=== PATIENT | female | born 1940 | race Caucasian/White ===

== ENCOUNTER 2022-03-07 13:49 | Emergency (ER) | payer BC, MEDICARE, OTHER ==
[2022-03-07] MEDS ORDERED: Acetaminophen 500 MG Tab PO ONE (16:28)
== END 2022-03-07 16:54 | disposition home or self-care (01) ==
LOC: LL.ED 13:49
DX: S00.81XA Abrasion of other part of head, initial encounter (principal); M25.562 Pain in left knee; M25.561 Pain in right knee; I10 Essential (primary) hypertension; E11.9 Type 2 diabetes mellitus without complications; E66.9 Obesity, unspecified; Z68.39 Body mass index [BMI] 39.0-39.9, adult; W01.0XXA Fall on same level from slipping, tripping and stumbling without subsequent striking against object, initial encounter
CPT/HCPCS: 70486; 99283; 99284; A9270-GY

== ENCOUNTER 2024-02-29 12:55 | Emergency (ER) | payer MEDICARE ==
[2024-02-29] MEDS ORDERED: Sodium Chloride 0.9% 10 ML Syringe FLUSH PRN (13:15)
[2024-02-29 13:39] LABS: BASOPHILS ABSOLUTE AUTO 0.07 K/uL (0.00-0.20); BASOPHILS PERCENT AUTO 0.7 % (0.0-2.0); EOSINOPHILS ABSOLUTE AUTO 0.06 K/uL (0.00-0.50); EOSINOPHILS PERCENT AUTO 0.6 % (0.0-5.0); HEMATOCRIT 28.5 % (34.0-46.0); HEMOGLOBIN 9.5 g/dL (11.7-15.5); LYMPHOCYTES ABSOLUTE AUTO 1.12 K/uL (0.50-3.50); LYMPHOCYTES PERCENT AUTO 11.8 % (10.0-50.0); MEAN CORPUSCULAR HEMOGLOBIN 32.5 pg (28.2-33.3); MEAN CORPUSCULAR HGB CONC 33.3 g/dL (31.7-36.0); MEAN CORPUSCULAR VOLUME 97.6 fL (84.0-98.0); MONOCYTES ABSOLUTE AUTO 0.68 K/uL (0.00-1.00); MONOCYTES PERCENT AUTO 7.2 % (2.0-14.0); NEUTROPHILS ABSOLUTE AUTO 7.54 K/uL (1.40-7.00); NEUTROPHILS PERCENT AUTO 79.7 % (45.0-80.0); PLATELET COUNT,PLT 98 K/uL (150-350); RED BLOOD CELL COUNT 2.92 M/uL (3.77-5.09); RED CELL DISTRIBUTION WIDTH 17.7 % (11.2-14.1); WHITE BLOOD CELL COUNT,WBC 9.5 K/uL (4.0-10.2)
[2024-02-29] MEDS: Morphine 4 MG/ML Syringe IVPUSH ONE (13:50)
[2024-02-29] MEDS: Sodium Chloride 0.9% 1,000 ML IV ONE (13:50)
[2024-02-29] MEDS: Ondansetron 4 MG Tab.DIS PO ONE (13:50)
[2024-02-29] MEDS: Ondansetron 4 MG/2 ML SDV IVPUSH ONE (13:51)
[2024-02-29] MEDS: Morphine 4 MG/ML Syringe IM ONE (13:57)
[2024-02-29 14:00] LABS: ALANINE AMINOTRANSFERASE,ALT 20 U/L (12-78); ALBUMIN 3.1 g/dL (3.4-5.0); ALKALINE PHOSPHATASE 114 IU/L (46-116); ANION GAP 12.6 meq/L (7-15); ASPARTATE AMNIOTRANSFERASE,AST 31 U/L (15-37); BILIRUBIN TOTAL 1.8 mg/dL (0.2-1.0); BLOOD UREA NITROGEN,BUN 49 mg/dL (7-18); CALCIUM 7.8 mg/dL (8.5-10.1); CARBON DIOXIDE,CO2 22.4 mmol/L (21.0-32.0); CHLORIDE,CL 106 mmol/L (98-107); CREATININE 2.32 mg/dL (0.51-1.17); GLUCOSE RANDOM 69 mg/dL (70-99); POTASSIUM,K 3.9 mmol/L (3.5-5.1); SODIUM,NA 141 mmol/L (136-145)
[2024-02-29 14:01] LABS: ESTIMATED GFR 20 mL/min (>=60)
[2024-02-29] MEDS: oxyCODONE 5 MG Tab PO ONE (15:34)
[2024-02-29] MEDS: Morphine 10 MG/ML Syringe IM ONE (16:26)
== END 2024-02-29 17:35 ==
LOC: LL.ED 12:55
DX: S42.201A Unspecified fracture of upper end of right humerus, initial encounter for closed fracture (principal); I13.0 Hypertensive heart and chronic kidney disease with heart failure and stage 1 through stage 4 chronic kidney disease, or unspecified chronic kidney disease; I50.30 Unspecified diastolic (congestive) heart failure; N18.4 Chronic kidney disease, stage 4 (severe); E11.22 Type 2 diabetes mellitus with diabetic chronic kidney disease; E66.9 Obesity, unspecified; E78.00 Pure hypercholesterolemia, unspecified; Z79.82 Long term (current) use of aspirin; Z79.899 Other long term (current) drug therapy; Z79.4 Long term (current) use of insulin; Z79.84 Long term (current) use of oral hypoglycemic drugs; W19.XXXA Unspecified fall, initial encounter
CPT/HCPCS: 36415; 73060; 73200; 73560; 80053; 82947; 85025; 96372; 99284; A9270; J2270

== ENCOUNTER 2024-03-05 19:50 | Emergency (ER) | payer MEDICARE ==
[2024-03-05] MEDS ORDERED: Sodium Chloride 0.9% 10 ML Syringe FLUSH PRN ×2 (20:05)
[2024-03-05] MEDS: Lactated Ringers 1,000 ML IV ONE ×2 (20:22→21:24)
[2024-03-05 20:23] LABS: BASOPHILS ABSOLUTE AUTO 0.01 K/uL (0.00-0.20); BASOPHILS PERCENT AUTO 0.1 % (0.0-2.0); EOSINOPHILS ABSOLUTE AUTO 0.11 K/uL (0.00-0.50); EOSINOPHILS PERCENT AUTO 1.1 % (0.0-5.0); HEMATOCRIT 25.1 % (34.0-46.0); HEMOGLOBIN 8.3 g/dL (11.7-15.5); LYMPHOCYTES ABSOLUTE AUTO 1.06 K/uL (0.50-3.50); LYMPHOCYTES PERCENT AUTO 10.5 % (10.0-50.0); MEAN CORPUSCULAR HEMOGLOBIN 33.6 pg (28.2-33.3); MEAN CORPUSCULAR HGB CONC 33.1 g/dL (31.7-36.0); MEAN CORPUSCULAR VOLUME 101.6 fL (84.0-98.0); MONOCYTES ABSOLUTE AUTO 1.11 K/uL (0.00-1.00); NEUTROPHILS ABSOLUTE AUTO 7.79 K/uL (1.40-7.00); NEUTROPHILS PERCENT AUTO 77.3 % (45.0-80.0); PLATELET COUNT,PLT 167 K/uL (150-350); RED BLOOD CELL COUNT 2.47 M/uL (3.77-5.09); WHITE BLOOD CELL COUNT,WBC 10.1 K/uL (4.0-10.2)
[2024-03-05] MEDS ORDERED: Norepinephrine Bit/D5W Premix 250 ML ONE (20:28)
[2024-03-05] MEDS: Norepinephrine Bit/D5W Premix 250 ML IV SCH (20:35)
[2024-03-05] MEDS: Cefepime 2 GM Vial IVPUSH ONE (20:45)
[2024-03-05 20:47] LABS: LACTIC ACID 1.7 mmol/L (0.4-2.0)
[2024-03-05 20:51] LABS: ALANINE AMINOTRANSFERASE,ALT 20 U/L (12-78); ALKALINE PHOSPHATASE 135 IU/L (46-116); ANION GAP 20.4 meq/L (7-15); ASPARTATE AMNIOTRANSFERASE,AST 30 U/L (15-37); BLOOD UREA NITROGEN,BUN 139 mg/dL (7-18); CALCIUM 7.9 mg/dL (8.5-10.1); CARBON DIOXIDE,CO2 16.3 mmol/L (21.0-32.0); CHLORIDE,CL 102 mmol/L (98-107); CREATININE 5.86 mg/dL (0.51-1.17); ESTIMATED GFR 7 mL/min (>=60); GLUCOSE RANDOM 119 mg/dL (70-99); MAGNESIUM 1.8 mg/dL (1.8-2.4); POTASSIUM,K 4.7 mmol/L (3.5-5.1); PRO B-TYPE NATRIUR PEPT,BNPPRO 31083 pg/mL (0-125); PROTEIN TOTAL,TP 5.3 g/dL (6.4-8.2); SODIUM,NA 134 mmol/L (136-145)
[2024-03-05 21:01] LABS: INR 1.3 (0.9-1.1); PROTHROMBIN TIME 12.7 SEC (9.0-11.1)
[2024-03-05] MEDS ORDERED: fentaNYL 50 MCG/ML SDV ONE (22:09)
[2024-03-05] MEDS ORDERED: Ondansetron 4 MG/2 ML SDV ONE (22:09)
[2024-03-05] MEDS ORDERED: Naloxone 0.4 MG/ML SDV IVPUSH PRN (22:16)
[2024-03-05] MEDS: Ondansetron 4 MG/2 ML SDV IVPUSH ONE (22:30)
[2024-03-05] MEDS: fentaNYL 50 MCG/ML SDV IVPUSH ONE (22:30)
[2024-03-05 23:07] LABS: APPEARANCE,URINE TURBID; BILIRUBIN,URINE NEGATIVE (NEGATIVE); COLOR,URINE YELLOW; GLUCOSE,URINE NEGATIVE (NEGATIVE); KETONES,URINE NEGATIVE (NEGATIVE); LEUKOCYTE ESTERASE,URINE LARGE (NEGATIVE); NITRITE,URINE NEGATIVE (NEGATIVE); OCCULT BLOOD,URINE MODERATE (NEGATIVE); PH,URINE 5.5 (5.0-9.0); PROTEIN,URINE 100 mg/dL (NEGATIVE)
[2024-03-05 23:08] LABS: WBC,URINE 75-100 /HPF
[2024-03-05 23:09] LABS: BACTERIA,URINE MANY /HPF (NONE TO FEW); RBC,URINE 30-40 /HPF
== END 2024-03-05 22:30 ==
LOC: LL.ED 19:50
DX: A41.9 Sepsis, unspecified organism (principal); R65.21 Severe sepsis with septic shock; N30.01 Acute cystitis with hematuria; I13.0 Hypertensive heart and chronic kidney disease with heart failure and stage 1 through stage 4 chronic kidney disease, or unspecified chronic kidney disease; I50.32 Chronic diastolic (congestive) heart failure; N18.4 Chronic kidney disease, stage 4 (severe); E78.00 Pure hypercholesterolemia, unspecified; E11.22 Type 2 diabetes mellitus with diabetic chronic kidney disease; E66.9 Obesity, unspecified; Z90.710 Acquired absence of both cervix and uterus; Z79.899 Other long term (current) drug therapy; Z79.82 Long term (current) use of aspirin; Z79.4 Long term (current) use of insulin
CPT/HCPCS: 36415; 51702; 71045; 80053; 81001; 82947; 83605; 83735; 83880; 84484; 85025; 85610; 87040; 87086; 93005; 93010; 96365; 96366; 96375; 99284; 99285-25; J0692; J2405; J3010; J3490; J7120